=== PATIENT | female | born 1940 | race Hispanic/Latino ===

== ENCOUNTER 2022-11-11 12:29 | Emergency (ER) | payer MEDICARE ==
[~2022-11-11] VITALS: Ht 157.5 cm; Wt 72.6 kg
[2022-11-11] MEDS ORDERED: ONDANSETRON HCL INJ 2MG/ML 2ML 2 MG/ML VIAL IV STA (12:42)
[2022-11-11] MEDS ORDERED: SODIUM CHLORIDE 0.9% 1000ML 1,000 ML IV STA (12:42)
[2022-11-11] MEDS ORDERED: DICYCLOMINE HCL 20 MG/2 ML VIAL IM ONE (12:45)
[2022-11-11 13:20] LABS: BASOPHILS % 0.2 % (0.0-1.0); EOSINOPHILS % 0.4 % (0.0-6.0); HEMATOCRIT 36.9 % (34.2-44.1); HEMOGLOBIN 12.7 g/dL (12.0-16.0); LYMPHOCYTES # (AUTO) 1.4 (1.0-3.2); LYMPHOCYTES % 15.2 % (18.0-39.1); MEAN CORPUSCULAR HEMOGLOBIN 30.8 pg (28-32); MEAN CORPUSCULAR HGB CONC 34.4 g/dL (31-35); MEAN CORPUSCULAR VOLUME 89.3 fL (81-99); MONOCYTES # (AUTO) 0.6 (0.2-0.8); MONOCYTES % 6.3 % (4.4-11.3); NEUTROPHILS % 77.6 % (38.7-80.0); PLATELET COUNT 205 x10e3/uL (140-360); RED BLOOD COUNT 4.13 x10e6/uL (3.6-5.1); RED CELL DISTRIBUTION WIDTH 12.3 % (11.7-14.4)
[2022-11-11 13:33] LABS: INR 1.88; PARTIAL THROMBOPLASTIN TIME 33.4 seconds (23.8-35.5); PROTHROMBIN TIME 22.1 seconds (11.9-14.5)
[2022-11-11 13:40] LABS: ALANINE AMINOTRANSFERASE 19 IU/L (0-55); ALBUMIN/GLOBULIN RATIO 1.3 (0.8-2.0); ALKALINE PHOSPHATASE 43 IU/L (40-150); ANION GAP 14.8 mmol/L (8-16); BLOOD UREA NITROGEN 10 mg/dL (7-26); BUN/CREATININE RATIO 13 (6-25); CARBON DIOXIDE 22 mmol/L (22-29); CHLORIDE 107 mmol/L (98-107); GLUCOSE 242 mg/dL (74-118); LIPASE 35 U/L (8-78); POTASSIUM 3.8 mmol/L (3.5-5.1); SODIUM 140 mmol/L (136-145)
[2022-11-11] MEDS ORDERED: IOPAMIDOL 370 MG/ML 100 ML INFUS..BTL INJ ONE (13:54)
[2022-11-11 14:28] LABS: CLARITY,URINE HAZY (CLEAR); COLOR,URINE YELLOW (YELLOW); LEUKOCYTE ESTERASE ,URINE TRACE (NEGATIVE); NITRITE,URINE NEGATIVE (NEGATIVE); PROTEIN,URINE DIPSTICK NEGATIVE (NEGATIVE)
[2022-11-11 14:29] LABS: KETONES,URINE NEGATIVE (NEGATIVE); URINE UROBILINOGEN 0.2 mg/dL (0.2 - 1)
[2022-11-11 14:36] LABS: BACTERIA,URINE FEW /HPF; EPITHELIAL CELLS,URINE FEW /LPF
[2022-11-11] MEDS ORDERED: CEFUROXIME250 MG PO (15:17)
[2022-11-11] MEDS ORDERED: DICYCLOMINE HCL10 MG PO (15:17)
[2022-11-11 16:10] VITALS: BP 125/65
== END 2022-11-11 15:42 | disposition home or self-care (01) ==
LOC: ER 12:32
DX: R10.30 Lower abdominal pain, unspecified (principal); N39.0 Urinary tract infection, site not specified; I10 Essential (primary) hypertension; E11.65 Type 2 diabetes mellitus with hyperglycemia; I25.10 Atherosclerotic heart disease of native coronary artery without angina pectoris; Z20.822 Contact with and (suspected) exposure to COVID-19; I25.2 Old myocardial infarction; R94.31 Abnormal electrocardiogram [ECG] [EKG]; F17.210 Nicotine dependence, cigarettes, uncomplicated
CPT/HCPCS: 36415; 71045; 74177; 80053; 81001; 83690; 83735; 84484; 85025; 85610; 85730; 87086; 93005; 99284; C9113; J0500; J2405; J7030; Q9967; U0002

== ENCOUNTER 2023-01-22 12:29 | Emergency (ER) | payer MEDICARE ==
[~2023-01-22] VITALS: Ht 157.5 cm; Wt 72.6 kg
[~2023-01-22 12:29] MED LIST: CEFUROXIME250 MG PO; DICYCLOMINE HCL10 MG PO
[2023-01-22 13:28] VITALS: O2SAT 100
[2023-01-22] MEDS ORDERED: DICYCLOMINE HCL 20 MG/2 ML VIAL IM ONE (14:00)
[2023-01-22] MEDS ORDERED: CHOLESTYRAMINE378 GM PO (14:01)
== END 2023-01-22 14:04 | disposition home or self-care (01) ==
LOC: ER 12:36
DX: R10.9 Unspecified abdominal pain (principal); I10 Essential (primary) hypertension; E11.9 Type 2 diabetes mellitus without complications; I25.10 Atherosclerotic heart disease of native coronary artery without angina pectoris; I25.2 Old myocardial infarction
CPT/HCPCS: 99282; J0500

== ENCOUNTER 2024-03-29 14:12 | Emergency (ER) | payer MEDICARE ==
[~2024-03-29] VITALS: Ht 157.5 cm; Wt 72.6 kg
[~2024-03-29 14:12] MED LIST changes: +CHOLESTYRAMINE378 GM PO
[2024-03-29] MEDS ORDERED: DICYCLOMINE HCL 20 MG/2 ML VIAL IM ONE (14:30)
[2024-03-29 14:50] VITALS: PULSE 84; RESP 17; TEMP 98.5
[2024-03-29 15:05] LABS: HEMATOCRIT 37.2 % (34.2-44.1); MEAN CORPUSCULAR VOLUME 89.4 fL (81-99); RED BLOOD COUNT 4.16 x10e6/uL (3.6-5.1); WHITE BLOOD COUNT 6.72 x10e3/uL (4.8-10.8)
[2024-03-29 15:06] LABS: BASOPHILS % 0.1 % (0.0-1.0); EOSINOPHILS % 0.3 % (0.0-6.0); LYMPHOCYTES # (AUTO) 1.1 (1.0-3.2); LYMPHOCYTES % 15.9 % (18.0-39.1); MEAN CORPUSCULAR HEMOGLOBIN 31.3 pg (28-32); MEAN CORPUSCULAR HGB CONC 34.9 g/dL (31-35); MONOCYTES # (AUTO) 0.5 (0.2-0.8); MONOCYTES % 6.7 % (4.4-11.3); NEUTROPHILS # (AUTO) 5.2 (2.1-6.9); NEUTROPHILS % 76.9 % (38.7-80.0); PLATELET COUNT 197 x10e3/uL (140-360); RED CELL DISTRIBUTION WIDTH 12.5 % (11.7-14.4)
[2024-03-29] MEDS: SODIUM CHLORIDE 0.9% 500ML 500 ML IV STA (15:15)
[2024-03-29] MEDS: ONDANSETRON HCL INJ 2MG/ML 2ML 2 MG/ML VIAL IV STA (15:16)
[2024-03-29] MEDS: BELLADONNA ALK/PHENOBARBITAL 5 ML UDC PO STA (15:16)
[2024-03-29] MEDS: LIDOCAINE VISC 2% SOLN 15 ML UDC PO ONE (15:16)
[2024-03-29] MEDS: MAGNESIUM/ALUMINUM/SIMETHICONE 30 ML UDC PO ONE (15:17)
[2024-03-29 15:32] LABS: CLARITY,URINE HAZY (CLEAR); COLOR,URINE YELLOW (YELLOW)
[2024-03-29 15:33] LABS: BACTERIA,URINE FEW /HPF; BILIRUBIN,URINE NEGATIVE (NEGATIVE); EPITHELIAL CELLS,URINE FEW /LPF; GLUCOSE, URINE NEGATIVE (NEGATIVE); KETONES,URINE NEGATIVE (NEGATIVE); LEUKOCYTE ESTERASE ,URINE SMALL (NEGATIVE); NITRITE,URINE NEGATIVE (NEGATIVE); PH,URINE 7.5 (5 - 7); PROTEIN,URINE DIPSTICK NEGATIVE (NEGATIVE); RBC,URINE 0-5 /HPF (0-5); URINE UROBILINOGEN 0.2 mg/dL (0.2 - 1)
[2024-03-29 15:44] LABS: ALANINE AMINOTRANSFERASE 18 IU/L (0-55); ALBUMIN 4.6 g/dL (3.5-5.0); ALBUMIN/GLOBULIN RATIO 1.4 (0.8-2.0); ALKALINE PHOSPHATASE 45 IU/L (40-150); ANION GAP 15.8 mmol/L (8-16); BILIRUBIN,TOTAL 0.9 mg/dL (0.2-1.2); BLOOD UREA NITROGEN 9 mg/dL (7-26); BUN/CREATININE RATIO 10 (6-25); CALCIUM 9.6 mg/dL (8.4-10.2); CARBON DIOXIDE 21 mmol/L (22-29); CHLORIDE 98 mmol/L (98-107); CREATININE, SERUM 0.94 mg/dL (0.57-1.11); EST GLOMERULAR FILTRATION RATE 61 ML/MIN (>=60); GLUCOSE 195 mg/dL (74-118); LIPASE 32 U/L (8-78); POTASSIUM 3.8 mmol/L (3.5-5.1); SODIUM 131 mmol/L (136-145); TOTAL PROTEIN 7.8 g/dL (6.5-8.1)
[2024-03-29 15:52] LABS: TROPONIN I < 0.001 ng/mL (0-0.300)
[2024-03-29] MEDS ORDERED: IOPAMIDOL 370 MG/ML 100 ML INFUS..BTL INJ ONE (15:53)
[2024-03-29] MEDS ORDERED: DEXILANT60 MG PO (16:57)
[2024-03-29] MEDS ORDERED: SUCRALFATE1 GM PO (16:58)
[2024-03-29 17:09] VITALS: BP 126/80; PULSE 82; RESP 16; O2SAT 100
== END 2024-03-29 17:11 | disposition home or self-care (01) ==
LOC: ER 14:19
DX: R10.13 Epigastric pain (principal); K29.70 Gastritis, unspecified, without bleeding; R11.0 Nausea; E11.65 Type 2 diabetes mellitus with hyperglycemia; I10 Essential (primary) hypertension; E78.5 Hyperlipidemia, unspecified; I25.10 Atherosclerotic heart disease of native coronary artery without angina pectoris; K21.9 Gastro-esophageal reflux disease without esophagitis; F41.9 Anxiety disorder, unspecified; R94.31 Abnormal electrocardiogram [ECG] [EKG]; I25.2 Old myocardial infarction
CPT/HCPCS: 36415; 74177; 80053; 81001; 83690; 84484; 85025; 93005; 99284; J2405; J2470; J7040; Q9967

== ENCOUNTER 2025-03-31 19:07 | Emergency (ER) | payer MEDICARE ==
[~2025-03-31] VITALS: Ht 157.5 cm; Wt 72.6 kg
[~2025-03-31 19:07] MED LIST changes: +DEXILANT60 MG PO; +SUCRALFATE1 GM PO
[2025-03-31 20:10] LABS: BASOPHILS % 0.3 % (0.0-1.0); EOSINOPHILS % 1.4 % (0.0-6.0); LYMPHOCYTES % 32.8 % (18.0-39.1); MONOCYTES % 7.6 % (4.4-11.3); NEUTROPHILS % 57.5 % (38.7-80.0); RED CELL DISTRIBUTION WIDTH 13.9 % (11.7-14.4)
[2025-03-31 20:27] LABS: CORONAVIRUS COVID-19 AG NEGATIVE (NEGATIVE)
[2025-03-31 20:31] LABS: EST GLOMERULAR FILTRATION RATE 80.0 ML/MIN (>=60)
[2025-03-31 21:21] VITALS: PULSE 76; RESP 18; TEMP 98.4
[2025-03-31 21:22] VITALS: BP 144/65; PULSE 66; RESP 16; O2SAT 100
== END 2025-03-31 21:24 | disposition home or self-care (01) ==
LOC: ER 19:19
DX: R06.02 Shortness of breath (principal); E11.65 Type 2 diabetes mellitus with hyperglycemia; R42 Dizziness and giddiness; I10 Essential (primary) hypertension; E78.5 Hyperlipidemia, unspecified; I25.10 Atherosclerotic heart disease of native coronary artery without angina pectoris; K21.9 Gastro-esophageal reflux disease without esophagitis; F41.9 Anxiety disorder, unspecified; Z11.52 Encounter for screening for COVID-19; R94.31 Abnormal electrocardiogram [ECG] [EKG]; I25.2 Old myocardial infarction
CPT/HCPCS: 36415; 71045; 80053; 82550; 82948; 83690; 83880; 84484; 85025; 93005; 99284

== ENCOUNTER 2025-04-19 10:59 | Emergency (ER) | payer MEDICARE ==
[~2025-04-19] VITALS: Ht 157.5 cm; Wt 72.6 kg
[2025-04-19 11:05] VITALS: PULSE 83; RESP 18; TEMP 98.2; O2SAT 100
[2025-04-19 11:24] LABS: BASOPHILS % 0.1 % (0.0-1.0); EOSINOPHILS % 0.7 % (0.0-6.0); LYMPHOCYTES % 36.3 % (18.0-39.1); MONOCYTES % 9.2 % (4.4-11.3); NEUTROPHILS % 53.4 % (38.7-80.0); RED CELL DISTRIBUTION WIDTH 13.6 % (11.7-14.4)
[2025-04-19 11:51] LABS: EST GLOMERULAR FILTRATION RATE 76.0 ML/MIN (>=60)
[2025-04-19 12:43] LABS: CORONAVIRUS COVID-19 AG NEGATIVE (NEGATIVE)
[2025-04-19] MEDS ORDERED: FIORICET 50-301 EACH PO (13:33)
== END 2025-04-19 13:41 | disposition home or self-care (01) ==
LOC: ER 11:01
DX: R51.9 Headache, unspecified (principal); R11.2 Nausea with vomiting, unspecified; M54.2 Cervicalgia; M79.605 Pain in left leg; I10 Essential (primary) hypertension; E11.65 Type 2 diabetes mellitus with hyperglycemia; E78.5 Hyperlipidemia, unspecified; I25.10 Atherosclerotic heart disease of native coronary artery without angina pectoris; K21.9 Gastro-esophageal reflux disease without esophagitis; R94.31 Abnormal electrocardiogram [ECG] [EKG]; F41.9 Anxiety disorder, unspecified; I25.2 Old myocardial infarction
CPT/HCPCS: 36415; 70450; 71045; 80053; 82550; 83690; 83880; 84484; 85025; 93005; 93971; 99284

== ENCOUNTER 2025-05-17 17:10 | Emergency (ER) | payer MEDICARE ==
[~2025-05-17] VITALS: Ht 157.5 cm; Wt 72.6 kg
[~2025-05-17 17:10] MED LIST changes: +FIORICET 50-301 EACH PO
[2025-05-17 17:46] VITALS: PULSE 80; RESP 16; TEMP 98.8
[2025-05-17 19:31] VITALS: BP 129/84; PULSE 74; RESP 18; TEMP 98.6; O2SAT 98
== END 2025-05-17 19:25 | disposition home or self-care (01) ==
LOC: ER 18:44
DX: M25.562 Pain in left knee (principal); M17.12 Unilateral primary osteoarthritis, left knee; I10 Essential (primary) hypertension; E11.9 Type 2 diabetes mellitus without complications; E78.5 Hyperlipidemia, unspecified; I48.91 Unspecified atrial fibrillation; K21.9 Gastro-esophageal reflux disease without esophagitis; M81.0 Age-related osteoporosis without current pathological fracture; F41.9 Anxiety disorder, unspecified; I25.2 Old myocardial infarction
CPT/HCPCS: 99284